=== PATIENT | female | born 1985 | race American Indian/Alaskan Native ===

== ENCOUNTER 2020-04-28 17:24 | Emergency (ER) | payer SELFPAY ==
[2020-04-28] MEDS ORDERED: Sodium Chloride 0.9% 10 ML Syringe FLUSH PRN (17:28)
[2020-04-28] MEDS ORDERED: Sodium Chloride 0.9% 2.5 ML Syringe FLUSH PRN (17:28)
[2020-04-28] MEDS ORDERED: Dexamethasone 10 MG/ML SDV IVPUSH ONE ×2 (17:29→17:45)
[2020-04-28] MEDS ORDERED: Sodium Chloride 0.9% 1,000 ML IV ONE (17:29)
[2020-04-28] MEDS ORDERED: Famotidine 20 MG/2 ML SDV IVPUSH ONE ×2 (17:29→17:45)
[2020-04-28] MEDS ORDERED: diphenhydrAMINE 50 MG/ML SDV IVPUSH ONE ×2 (17:29→17:45)
--- NOTE | 2020-04-28 17:32 | EDM.PDOC ---
ED HPI GENERAL MEDICAL PROBLEM - General Chief Complaint: Allergic Reaction Stated Complaint: ALLERGIC REACTION TO MEDS Time Seen by Provider: 04/28/20 17:28 - History of Present Illness INITIAL COMMENTS - FREE TEXT/NARRATIVE: History of present illness: Patient presents with an allergic reaction to ibuprofen. Patient is complaining of flushing facial swelling and itching no trouble breathing or trouble swallowing she is allergic to ibuprofen and accidentally took a tablet thinking it was Tylenol earlier today she then started having a reaction and came straight to the hospital. Previous reaction include hives with swollen face and flushing. She currently denies any shortness of breath or trouble swallowing she is speaking in normal tones and is not in any respiratory distress although she does appear flushed and her lips and face are red and swollen. No other complaints nothing seems to make it better or worse Review of systems: As per history of present illness and below otherwise all systems reviewed and n egative. Past medical history: As per history of present illness and as reviewed below otherwise noncontributory. Surgical history: As per history of present illness and as reviewed below otherwise noncontributory. Social history: No reported history of drug or alcohol abuse. Family history: As per history of present illness and as reviewed below otherwise noncontributory. Physical exam: HEENT: Atraumatic, normocephalic, pupils reactive, negative for conjunctival pallor or scleral icterus, mucous membranes moist, throat clear, neck supple, nontender, trachea midline. There is some lip swelling upper and lower lips stridor Lungs: Clear to auscultation, breath sounds equal bilaterally, chest nontender. Heart: S1S2, regular, negative for clicks, rubs, or JVD. Abdomen: Soft, nondistended, nontender. Negative for masses or hepatosplenomegaly. Negative for costovertebral tenderness. Pelvis: Stable nontender. Genitourinary: Deferred. Rectal: Deferred. Extremities: Atraumatic, negative for cords or calf pain. Neurovascular unremarkable. Neuro: Awake, alert, oriented. Cranial nerves II through XII unremarkable. Cerebellum unremarkable. Motor and sensory unremarkable throughout. Exam nonfocal. Skin: Patient appears flushed Diagnostics: [] Therapeutics: [] Impression: Allergic reaction to ibuprofen [] Plan: Decadron Benadryl Pepcid IV bolus reassess the patient. [] Definitive disposition and diagnosis as appropriate pending reevaluation and review of above. - Related Data Allergies Allergy/AdvReac Type Severity Reaction Status Date / Time ibuprofen Allergy Swelling Verified 04/28/20 17:32 NSAIDS (Non-Steroidal Allergy Swelling Verified 04/28/20 17:32 Anti-Inflamma Home Meds: Home Meds Gabapentin [Neurontin] 300 mg PO DAILY 04/28/20 [History] ED ROS ALLERGIC REACTION - Review of Systems Review Of Systems: See Below ED EXAM GENERAL NO PERIP PULSE - Physical Exam Exam: See Below Course - Vital Signs Text/Narrative:: Patient was reexamined at 6:40 PM she is feeling better resting comfortably no respiratory distress no stridor swallows without difficulty appears to be better she will be discharged home she was never in anaphylactic shock she is encouraged to avoid Motrin. Return to the ED for worsening condition Last Recorded V/S: Last Vital Signs Temp 36.6 C 04/28/20 17:30 Pulse 104 H 04/28/20 17:46 Resp 15 04/28/20 17:46 BP 137/90 04/28/20 17:46 Pulse Ox 97 04/28/20 17:46 - Orders/Labs/Meds Orders: Active Orders 24 hr Category Date Time Status Sodium Chloride 0.9% [Saline Flush] Med 04/28/20 17:28 Active 10 ml FLUSH ASDIRECTED PRN Sodium Chloride 0.9% [Saline Flush] Med 04/28/20 17:28 Active 2.5 ml FLUSH ASDIRECTED PRN Saline Lock Insert [OM.PC] Stat Oth 04/28/20 17:28 Ordered Medication Orders Sodium Chloride (Saline Flush) 10 ml FLUSH ASDIRECTED PRN PRN Reason: Keep Vein Open Last Admin: 04/28/20 17:45 Dose: 10 ml Documented by: VIALMEL Sodium Chloride (Saline Flush) 2.5 ml FLUSH ASDIRECTED PRN PRN Reason: Keep Vein Open Last Admin: 04/28/20 17:45 Dose: 2.5 ml Documented by: VIALMEL Meds: Medications Generic Name Dose Route Start Last Admin Trade Name Freq PRN Reason Stop Dose Admin Sodium Chloride 10 ml 04/28/20 17:28 04/28/20 17:45 Saline Flush FLUSH 10 ml ASDIRECTED PRN Administration Keep Vein Open Sodium Chloride 2.5 ml 04/28/20 17:28 04/28/20 17:45 Saline Flush FLUSH 2.5 ml ASDIRECTED PRN Administration Keep Vein Open Discontinued Medications Generic Name Dose Route Start Last Admin Trade Name Sparkle PRN Reason Stop Dose Admin Dexamethasone 10 mg 04/28/20 17:45 04/28/20 17:45 Dexamethasone IVPUSH 04/28/20 17:46 10 mg ONETIME ONE Administration Diphenhydramine HCl 50 mg 04/28/20 17:45 04/28/20 17:44 Benadryl IVPUSH 04/28/20 17:46 50 mg ONETIME ONE Administration Famotidine 20 mg 04/28/20 17:45 04/28/20 17:44 Pepcid IVPUSH 04/28/20 17:46 20 mg ONETIME ONE Administration Sodium Chloride 1,000 mls @ 999 mls/hr 04/28/20 17:29 04/28/20 17:45 Normal Saline IV 04/28/20 18:29 999 mls/hr .Bolus ONE Administration Departure - Departure Time of Disposition: 18:43 Disposition: Home, Self-Care 01 Condition: Good Clinical Impression: Allergic reaction - Discharge Information *PRESCRIPTION DRUG MONITORING PROGRAM REVIEWED*: Not Applicable *COPY OF PRESCRIPTION DRUG MONITORING REPORT IN PATIENT MARY BETH: Not Applicable Instructions: Allergies, Adult, [id number] Additional Instructions: The following information is given to patients seen in the emergency department who are being discharged to home. This information is to outline your options for follow-up care. We provide all patients seen in our emergency department with a follow-up referral. The need for follow-up, as well as the timing and circumstances, are variable depending upon the specifics of your emergency department visit. If you don't have a primary care physician on staff, we will provide you with a referral. We always advise you to contact your personal physician following an emergency department visit to inform them of the circumstance of the visit and for follow-up with them and/or the need for any referrals to a consulting specialist. The emergency department will also refer you to a specialist when appropriate. This referral assures that you have the opportunity for follow-up care with a specialist. All of these measure are taken in an effort to provide you with optimal care, which includes your follow-up. Under all circumstances we always encourage you to contact your private physician who remains a resource for coordinating your care. When calling for follow-up care, please make the office aware that this follow-up is from your recent emergency room visit. If for any reason you are refused follow-up, please contact the [facility] Emergency Department at and asked to speak to the emergency department charge nurse. [facility] [address], [place] [address] [facility] [address] [place] [id number] Sepsis Event Note (ED) - Focused Exam Vital Signs: Vital Signs Temp Pulse Resp BP Pulse Ox 04/28/20 17:46 104 H 15 137/90 97 04/28/20 17:30 36.6 C 112 H 18 136/84 97 - My Orders Last 24 Hours: My Active Orders 04/28/20 17:28 Sodium Chloride 0.9% [Saline Flush] 10 ml FLUSH ASDIRECTED PRN Sodium Chloride 0.9% [Saline Flush] 2.5 ml FLUSH ASDIRECTED PRN Saline Lock Insert [OM.PC] Stat - Assessment/Plan Last 24 Hours: My Active Orders 04/28/20 17:28 Sodium Chloride 0.9% [Saline Flush] 10 ml FLUSH ASDIRECTED PRN Sodium Chloride 0.9% [Saline Flush] 2.5 ml FLUSH ASDIRECTED PRN Saline Lock Insert [OM.PC] Stat
== END 2020-04-28 18:58 | disposition home or self-care (01) ==
LOC: MW.ED 17:24
DX: R22.0 Localized swelling, mass and lump, head (principal); T39.315A Adverse effect of propionic acid derivatives, initial encounter; Z88.6 Allergy status to analgesic agent; Z88.8 Allergy status to other drugs, medicaments and biological substances; Z79.899 Other long term (current) drug therapy
CPT/HCPCS: 96374; 96375; 99283; J1100; J1200; J3490; J7030